=== PATIENT | female | born 1950 | race Caucasian/White ===

== ENCOUNTER 2020-04-07 12:17 | Emergency (ER) | payer MEDICARE ==
[~2020-04-07] VITALS: Ht 152.4 cm; Wt 67.3 kg
[~2020-04-07 12:17] MED LIST: LIDOcaine 1% w/EPI 1:100,000 30ml vial (MDV) ONE
[2020-04-07 15:06] VITALS: BP 161/78
[2020-04-07] MEDS ORDERED: LIDOcaine 5% patch TP STA (16:03)
[2020-04-07] MEDS ORDERED: LIDO700A32 TOP (16:13)
== END 2020-04-07 16:27 | disposition home or self-care (01) ==
LOC: ER 12:18
DX: S29.012A Strain of muscle and tendon of back wall of thorax, initial encounter (principal); Z85.9 Personal history of malignant neoplasm, unspecified; Z88.2 Allergy status to sulfonamides; Z88.8 Allergy status to other drugs, medicaments and biological substances; W19.XXXA Unspecified fall, initial encounter; Y93.89 Activity, other specified; Y92.89 Other specified places as the place of occurrence of the external cause; Y99.8 Other external cause status
CPT/HCPCS: 20552; 99284